=== PATIENT | male | born 1955 | race Two or more races ===

== ENCOUNTER 2021-02-27 19:34 | Inpatient (IN) | payer MEDICARE, OTHER ==
[~2021-02-27] VITALS: Ht 180.3 cm; Wt 114.1 kg
[2021-02-27 20:32] LABS: Basophils # (auto) 0.1 10 ^3/uL (0-0.2); Basophils % (auto) 1.1 % (0.0-2.0); Eosinophils # (auto) 0.2 10 ^3/uL (0-0.8); Eosinophils % (auto) 1.7 % (0.0-7.0); Hematocrit 49.3 % (41.0-53.0); Lymphocytes # (auto) 1.8 10 ^3/uL (0.4-5.4); Lymphocytes % (auto) 18.4 % (10.0-50.0); Mean Corpuscular Hemoglobin 29.7 pg (28.0-32.0); Mean Corpuscular Hgb Conc. 34.4 g/dL (32.0-36.0); Mean Corpuscular Volume 86.2 fL (80.0-100.0); Monocytes % (auto) 10.2 % (0.0-12.0); Neutrophils # (auto) 6.5 10 ^3/uL (1.6-8.6); Neutrophils % (auto) 68.6 % (37.0-80.0); Nucleated Red Blood Cells % 0.1 %; Red Blood Cells 5.72 10^6/uL (4.5-5.90); Red Cell Distribution Width 14.3 % (11.8-14.3); White Blood Cell 9.5 10^3/uL (4.4-10.8)
[2021-02-27 20:52] LABS: Albumin 3.9 g/dL (3.4-5.0); Anion Gap 6 (5-15); Blood Urea Nitrogen 14 mg/dL (7-18); Calcium 9.3 mg/dL (8.5-10.1); Carbon Dioxide 25 mmol/L (21-32); Chloride 107 mmol/L (98-107); Glucose 154 mg/dL (74-106); Magnesium 2.4 mg/dL (1.6-2.6); Potassium 3.9 mmol/L (3.5-5.1); Sodium 138 mmol/L (136-145)
[2021-02-27 21:11] LABS: Alanine Aminotransferase 50 U/L (16-61); Alkaline Phosphatase 102 U/L (45-117); Aspartate Aminotransferase 20 U/L (15-37); BUN/Creatinine Ratio 13.7; Bilirubin, Total 0.9 mg/dL (0.2-1.0); GFR African American 94 mL/min; GFR Non-African American 78 mL/min; Total Protein 7.4 g/dL (6.4-8.2)
[2021-02-28] MEDS ORDERED: ONDANSETRON HCL 4 MG/2 ML VIAL IV PRN (06:15)
[2021-02-28] MEDS: SODIUM CHLORIDE 0.9% 1,000 ML IV SCH ×2 (06:15→18:13)
[2021-02-28] MEDS: cefTRIAXone 1GM/50ML D5W 50 ML IV SCH (09:37)
[2021-02-28] MEDS: PANTOPRAZOLE 40 MG/10 ML VIAL INJ IV SCH (09:38)
[2021-02-28] MEDS ORDERED: metroNIDAZOLE 500MG/100ML 100 ML IV ONE (12:15)
[2021-02-28] MEDS: metroNIDAZOLE 500MG/100ML 100 ML IV SCH ×2 (20:00→23:46)
[2021-02-28 22:54] VITALS: BP 153/90
[2021-03-01 04:52] VITALS: BP 157/83
[2021-03-01] MEDS: SODIUM CHLORIDE 0.9% 1,000 ML IV SCH ×3 (05:38→23:11)
[2021-03-01 05:45] LABS: Basophils # (auto) 0.1 10 ^3/uL (0-0.2); Basophils % (auto) 0.8 % (0.0-2.0); Eosinophils # (auto) 0.2 10 ^3/uL (0-0.8); Eosinophils % (auto) 3.1 % (0.0-7.0); Hematocrit 43.7 % (41.0-53.0); Hemoglobin 15.7 g/dL (13.5-17.5); Lymphocytes # (auto) 1.2 10 ^3/uL (0.4-5.4); Mean Corpuscular Hemoglobin 31.1 pg (28.0-32.0); Mean Corpuscular Volume 86.4 fL (80.0-100.0); Monocytes # (auto) 0.8 10 ^3/uL (0-1.3); Monocytes % (auto) 11.4 % (0.0-12.0); Neutrophils # (auto) 4.5 10 ^3/uL (1.6-8.6); Neutrophils % (auto) 66.7 % (37.0-80.0); Nucleated Red Blood Cells % 0.1 %; Red Blood Cells 5.06 10^6/uL (4.5-5.90); Red Cell Distribution Width 14.2 % (11.8-14.3); White Blood Cell 6.7 10^3/uL (4.4-10.8)
[2021-03-01 06:17] LABS: Albumin 3.3 g/dL (3.4-5.0); BUN/Creatinine Ratio 12.7; Calcium 8.7 mg/dL (8.5-10.1); Potassium 4.3 mmol/L (3.5-5.1)
[2021-03-01 06:21] LABS: Bilirubin, Total 0.9 mg/dL (0.2-1.0); Total Protein 6.1 g/dL (6.4-8.2)
[2021-03-01] MEDS ORDERED: LOSA-39 PO (06:39)
[2021-03-01] MEDS ORDERED: AMLO-489 PO (06:39)
[2021-03-01] MEDS ORDERED: ATO40T PO (06:39)
[2021-03-01] MEDS ORDERED: PROP60CA34 PO (06:39)
[2021-03-01 09:00] VITALS: BP 129/87
[2021-03-01] MEDS: metroNIDAZOLE 500MG/100ML 100 ML IV SCH ×3 (09:35→23:11)
[2021-03-01] MEDS: LOSARTAN POTASSIUM 50 MG TAB PO SCH (09:36)
[2021-03-01] MEDS: PANTOPRAZOLE 40 MG/10 ML VIAL INJ IV SCH (09:36)
[2021-03-01] MEDS: cefTRIAXone 1GM/50ML D5W 50 ML IV SCH (09:36)
[2021-03-01] MEDS: amLODIPine BESYLATE 5 MG TAB PO SCH (09:37)
[2021-03-01 13:00] VITALS: BP 138/83
[2021-03-01 16:14] LABS: Urine Bacteria FEW /hpf (None Seen); Urine Blood Negative /uL (Negative); Urine WBC 3 /hpf (0 - 3)
[2021-03-01 17:00] VITALS: BP 141/82
[2021-03-01 22:00] VITALS: BP 147/85
[2021-03-02 05:00] VITALS: BP 134/83
[2021-03-02 06:34] LABS: Basophils # (auto) 0 10 ^3/uL (0-0.2); Basophils % (auto) 0.6 % (0.0-2.0); Eosinophils # (auto) 0.1 10 ^3/uL (0-0.8); Eosinophils % (auto) 2.5 % (0.0-7.0); Hematocrit 44.5 % (41.0-53.0); Hemoglobin 15.7 g/dL (13.5-17.5); Lymphocytes # (auto) 0.7 10 ^3/uL (0.4-5.4); Lymphocytes % (auto) 12.9 % (10.0-50.0); Mean Corpuscular Hemoglobin 30.6 pg (28.0-32.0); Mean Corpuscular Hgb Conc. 35.3 g/dL (32.0-36.0); Mean Corpuscular Volume 86.9 fL (80.0-100.0); Monocytes # (auto) 0.5 10 ^3/uL (0-1.3); Monocytes % (auto) 10.4 % (0.0-12.0); Neutrophils # (auto) 3.9 10 ^3/uL (1.6-8.6); Neutrophils % (auto) 73.6 % (37.0-80.0); Nucleated Red Blood Cells % 0.2 %; Red Blood Cells 5.12 10^6/uL (4.5-5.90); Red Cell Distribution Width 14.2 % (11.8-14.3); White Blood Cell 5.2 10^3/uL (4.4-10.8)
[2021-03-02 06:39] LABS: BUN/Creatinine Ratio 8.7; Calcium 8.8 mg/dL (8.5-10.1); Potassium 3.8 mmol/L (3.5-5.1)
[2021-03-02 09:00] VITALS: BP 143/93
[2021-03-02] MEDS: PANTOPRAZOLE 40 MG/10 ML VIAL INJ IV SCH (09:04)
[2021-03-02] MEDS: amLODIPine BESYLATE 5 MG TAB PO SCH (09:05)
[2021-03-02] MEDS: LOSARTAN POTASSIUM 50 MG TAB PO SCH (09:05)
[2021-03-02] MEDS: metroNIDAZOLE 500MG/100ML 100 ML IV SCH ×2 (09:06→16:21)
[2021-03-02] MEDS ORDERED: METR500T PO (11:07)
[2021-03-02] MEDS ORDERED: CIPR-173 PO (11:07)
[2021-03-02 11:10] VITALS: BP 143/93
[2021-03-02] MEDS ORDERED: ACETAMINOPHEN 325 MG TAB PO ONE (12:45)
[2021-03-02] MEDS: PROPRANOLOL HCL 20 MG TAB PO SCH ×2 (12:48→22:15)
[2021-03-02 13:00] VITALS: BP 163/90
[2021-03-02] MEDS: MORPHINE SULFATE 4 MG/ML SYR/VIAL IV PRN ×3 (13:40→22:19)
[2021-03-02] MEDS ORDERED: IOHEXOL 350 MG/ML 100ML IJ ONE (14:08)
[2021-03-02 16:00] VITALS: BP 152/89
[2021-03-02] MEDS: SODIUM CHLORIDE 0.9% 1,000 ML IV SCH (18:24)
[2021-03-02] MEDS ORDERED: HYDROmorphone HCL 2 MG/ML VL IV ONE (19:45)
[2021-03-02 23:58] VITALS: BP 165/95
[2021-03-03] MEDS: metroNIDAZOLE 500MG/100ML 100 ML IV SCH ×3 (00:18→15:24)
[2021-03-03] MEDS: MORPHINE SULFATE 4 MG/ML SYR/VIAL IV PRN ×4 (02:19→16:45)
[2021-03-03] MEDS: SODIUM CHLORIDE 0.9% 1,000 ML IV SCH ×2 (04:51→11:00)
[2021-03-03] MEDS: PROPRANOLOL HCL 20 MG TAB PO SCH ×3 (05:47→22:44)
[2021-03-03 09:00] VITALS: BP 153/80
[2021-03-03] MEDS: amLODIPine BESYLATE 5 MG TAB PO SCH (11:00)
[2021-03-03] MEDS: LOSARTAN POTASSIUM 50 MG TAB PO SCH (11:00)
[2021-03-03] MEDS: PANTOPRAZOLE 40 MG/10 ML VIAL INJ IV SCH (11:00)
[2021-03-03 12:18] LABS: Basophils # (auto) 0 10 ^3/uL (0-0.2); Basophils % (auto) 0.5 % (0.0-2.0); Eosinophils # (auto) 0.1 10 ^3/uL (0-0.8); Eosinophils % (auto) 1.7 % (0.0-7.0); Hemoglobin 15.6 g/dL (13.5-17.5); Lymphocytes # (auto) 0.5 10 ^3/uL (0.4-5.4); Lymphocytes % (auto) 6.5 % (10.0-50.0); Mean Corpuscular Hemoglobin 30.2 pg (28.0-32.0); Mean Corpuscular Hgb Conc. 34.6 g/dL (32.0-36.0); Mean Corpuscular Volume 87.3 fL (80.0-100.0); Monocytes # (auto) 0.9 10 ^3/uL (0-1.3); Monocytes % (auto) 11.6 % (0.0-12.0); Neutrophils # (auto) 6.3 10 ^3/uL (1.6-8.6); Neutrophils % (auto) 79.7 % (37.0-80.0); Nucleated Red Blood Cells % 0.3 %; Red Blood Cells 5.15 10^6/uL (4.5-5.90); Red Cell Distribution Width 14.4 % (11.8-14.3); White Blood Cell 7.9 10^3/uL (4.4-10.8)
[2021-03-03 13:00] VITALS: BP 145/79
[2021-03-03 13:28] LABS: Potassium 4.1 mmol/L (3.5-5.1)
[2021-03-03 13:44] LABS: BUN/Creatinine Ratio 13.1; Calcium 8.7 mg/dL (8.5-10.1)
[2021-03-03 13:45] LABS: Bilirubin, Total 8.7 mg/dL (0.2-1.0); Total Protein 6.6 g/dL (6.4-8.2)
[2021-03-03 17:00] VITALS: BP 134/76
[2021-03-03] MEDS: cefTRIAXone 1GM/50ML D5W 50 ML IV SCH (19:12)
[2021-03-03 22:00] VITALS: BP 135/77
[2021-03-04] MEDS: metroNIDAZOLE 500MG/100ML 100 ML IV SCH ×4 (00:32→23:36)
[2021-03-04] MEDS: SODIUM CHLORIDE 0.9% 1,000 ML IV SCH ×2 (04:37→16:09)
[2021-03-04 05:00] VITALS: BP 147/77
[2021-03-04] MEDS: diphenhdrAMINE HCL 50 MG/1 ML VL IV PRN ×2 (05:02→14:12)
[2021-03-04] MEDS: PROPRANOLOL HCL 20 MG TAB PO SCH ×3 (06:18→21:25)
[2021-03-04 09:00] VITALS: BP 137/78
[2021-03-04] MEDS: cefTRIAXone 1GM/50ML D5W 50 ML IV SCH (09:00)
[2021-03-04] MEDS: PANTOPRAZOLE 40 MG/10 ML VIAL INJ IV SCH (09:35)
[2021-03-04] MEDS: amLODIPine BESYLATE 5 MG TAB PO SCH (09:36)
[2021-03-04] MEDS: LOSARTAN POTASSIUM 50 MG TAB PO SCH (09:36)
[2021-03-04 13:00] VITALS: BP 145/79
[2021-03-04 14:08] LABS: Basophils # (auto) 0.1 10 ^3/uL (0-0.2); Basophils % (auto) 1.3 % (0.0-2.0); Eosinophils # (auto) 0.2 10 ^3/uL (0-0.8); Hematocrit 42.3 % (41.0-53.0); Hemoglobin 15.1 g/dL (13.5-17.5); Lymphocytes # (auto) 0.7 10 ^3/uL (0.4-5.4); Lymphocytes % (auto) 10.1 % (10.0-50.0); Mean Corpuscular Hgb Conc. 35.6 g/dL (32.0-36.0); Monocytes % (auto) 14.5 % (0.0-12.0); Neutrophils # (auto) 4.9 10 ^3/uL (1.6-8.6); Neutrophils % (auto) 71.1 % (37.0-80.0); Red Blood Cells 4.87 10^6/uL (4.5-5.90); Red Cell Distribution Width 14.6 % (11.8-14.3); White Blood Cell 6.9 10^3/uL (4.4-10.8)
[2021-03-04 14:38] LABS: Albumin 2.9 g/dL (3.4-5.0); Calcium 8.5 mg/dL (8.5-10.1); Potassium 3.6 mmol/L (3.5-5.1)
[2021-03-04 14:42] LABS: BUN/Creatinine Ratio 10.1; Bilirubin, Total 8.4 mg/dL (0.2-1.0); Total Protein 6.3 g/dL (6.4-8.2)
[2021-03-04 17:00] VITALS: BP 140/71
[2021-03-04 22:00] VITALS: BP 141/79
[2021-03-05] MEDS: SODIUM CHLORIDE 0.9% 1,000 ML IV SCH ×2 (03:55→14:26)
[2021-03-05 05:00] VITALS: BP 122/75
[2021-03-05] MEDS: PROPRANOLOL HCL 20 MG TAB PO SCH ×3 (06:01→21:44)
[2021-03-05] MEDS: metroNIDAZOLE 500MG/100ML 100 ML IV SCH ×3 (08:55→23:41)
[2021-03-05] MEDS: cefTRIAXone 1GM/50ML D5W 50 ML IV SCH (08:55)
[2021-03-05] MEDS: PANTOPRAZOLE 40 MG/10 ML VIAL INJ IV SCH (08:56)
[2021-03-05] MEDS: LOSARTAN POTASSIUM 50 MG TAB PO SCH (08:57)
[2021-03-05] MEDS: amLODIPine BESYLATE 5 MG TAB PO SCH (08:58)
[2021-03-05] MEDS: diphenhdrAMINE HCL 50 MG/1 ML VL IV PRN (08:59)
[2021-03-05 09:00] VITALS: BP 131/78
[2021-03-05 13:00] VITALS: BP 153/88
[2021-03-05 17:00] VITALS: BP 130/77
[2021-03-05 22:00] VITALS: BP 131/76
[2021-03-06] MEDS: diphenhdrAMINE HCL 50 MG/1 ML VL IV PRN ×2 (01:06→08:34)
[2021-03-06] MEDS: SODIUM CHLORIDE 0.9% 1,000 ML IV SCH ×2 (03:42→15:13)
[2021-03-06 05:00] VITALS: BP 137/80
[2021-03-06 05:30] LABS: Basophils # (auto) 0 10 ^3/uL (0-0.2); Basophils % (auto) 0.6 % (0.0-2.0); Eosinophils # (auto) 0.4 10 ^3/uL (0-0.8); Eosinophils % (auto) 6.2 % (0.0-7.0); Hematocrit 44.2 % (41.0-53.0); Hemoglobin 15.4 g/dL (13.5-17.5); Lymphocytes # (auto) 0.8 10 ^3/uL (0.4-5.4); Lymphocytes % (auto) 10.8 % (10.0-50.0); Mean Corpuscular Hemoglobin 30.4 pg (28.0-32.0); Mean Corpuscular Hgb Conc. 34.8 g/dL (32.0-36.0); Mean Corpuscular Volume 87.3 fL (80.0-100.0); Monocytes # (auto) 0.9 10 ^3/uL (0-1.3); Neutrophils # (auto) 5.1 10 ^3/uL (1.6-8.6); Neutrophils % (auto) 70.4 % (37.0-80.0); Nucleated Red Blood Cells % 0.1 %; Red Blood Cells 5.06 10^6/uL (4.5-5.90); Red Cell Distribution Width 14.5 % (11.8-14.3); White Blood Cell 7.2 10^3/uL (4.4-10.8)
[2021-03-06 05:51] LABS: Albumin 2.6 g/dL (3.4-5.0); Calcium 8.7 mg/dL (8.5-10.1); Potassium 3.9 mmol/L (3.5-5.1)
[2021-03-06 05:52] LABS: BUN/Creatinine Ratio 13.2
[2021-03-06 05:56] LABS: Bilirubin, Total 8.3 mg/dL (0.2-1.0); Total Protein 6.2 g/dL (6.4-8.2)
[2021-03-06] MEDS: PROPRANOLOL HCL 20 MG TAB PO SCH ×2 (06:03→13:36)
[2021-03-06] MEDS: PANTOPRAZOLE 40 MG/10 ML VIAL INJ IV SCH (08:22)
[2021-03-06] MEDS: LOSARTAN POTASSIUM 50 MG TAB PO SCH (08:23)
[2021-03-06] MEDS: amLODIPine BESYLATE 5 MG TAB PO SCH (08:24)
[2021-03-06] MEDS: cefTRIAXone 1GM/50ML D5W 50 ML IV SCH (08:25)
[2021-03-06] MEDS: metroNIDAZOLE 500MG/100ML 100 ML IV SCH ×3 (08:34→16:28)
[2021-03-06 09:00] VITALS: BP 146/79
[2021-03-06 13:00] VITALS: BP 142/73
[2021-03-06 17:00] VITALS: BP 147/85
== END 2021-03-06 20:18 | disposition left against medical advice (07) | DRG 446 ==
LOC: ER 19:34 → OVERFLOW 02-28 06:09 → WEST WING 02-28 21:26
PROVIDERS: ADMIT Nurse Practitioner; ATTEND Internal Medicine Pulmonary Disease
DX: K80.50 Calculus of bile duct without cholangitis or cholecystitis without obstruction (principal); I10 Essential (primary) hypertension; E78.5 Hyperlipidemia, unspecified; E66.01 Morbid (severe) obesity due to excess calories; Z20.822 Contact with and (suspected) exposure to COVID-19; R74.8 Abnormal levels of other serum enzymes; I16.0 Hypertensive urgency; Z90.49 Acquired absence of other specified parts of digestive tract; Z53.29 Procedure and treatment not carried out because of patient's decision for other reasons; Z68.36 Body mass index [BMI] 36.0-36.9, adult
CPT/HCPCS: 36415; 71045; 74176; 74181; 80048; 80053; 81001; 83690; 83735; 83880; 84484; 85025; 87426; 93005; C9113; G0378; J0696; J3490